=== PATIENT | female | born 1950 | race Caucasian/White ===

== ENCOUNTER 2023-08-23 13:48 | Emergency (ER) | payer MEDICAID, OTHER, SELFPAY ==
--- NOTE | ~2023-08-23 | XR_ITS ---
EXAMINATION: XR CHEST CLINICAL INFORMATION: Pain COMPARISON: None available. TECHNIQUE: 2 views of the chest were obtained. FINDINGS: The cardiac silhouette is enlarged. The thoracic aorta is slightly dilated or ectatic. There may be bilateral hilar and subcarinal mediastinal lymphadenopathy. There are innumerable bilateral pulmonary nodules. Infectious, inflammatory and neoplastic processes should be considered. There are small bilateral pleural effusions. No acute bone abnormality is seen. There are surgical clips in the left axilla. XR/XR chest 2V IMPRESSION: Innumerable bilateral pulmonary nodules and small bilateral pleural effusions. Infectious, inflammatory and neoplastic processes should be considered. Follow-up chest CT scan may be helpful.
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
[2023-08-23 14:17] VITALS: BP 106/65; PULSE 96; RESP 17; TEMP 36.3; O2SAT 90; BMI 39.7
--- NOTE | 2023-08-23 14:18 | ECG_ITS ---
Test Reason : dyspnea Blood Pressure : / mmHG Vent. Rate : 100 BPM Atrial Rate : 100 BPM P-R Int : 160 ms QRS Dur : 100 ms QT Int : 348 ms P-R-T Axes : 049 000 043 degrees QTc Int : 448 ms Normal sinus rhythm Intra-ventricular conduction delay Possible Anterior infarct , age undetermined Abnormal ECG No previous ECGs available Referred By: Po Pak Electronically Signed By:MARQUISE MCCALLUM MD
--- NOTE | 2023-08-23 15:00 | PC.NURSE ---
pct in room to attempt straight stick to obtain blood work, patient refusing stating she will only allow blood to be drawn via IV.
--- NOTE | 2023-08-23 18:27 | PC.NURSE ---
patient refusing all lab work. requesting an oxygen tank and wheelchair upon discharge. provider reaching out to curtain supervisor in regards to oxygen tank to take home. educated on the fact they will not be able to leave with a wheelchair. provided with sandwiches and drinks. resting quietly in room conversing with family that is at the bedside.
--- NOTE | 2023-08-23 20:00 | PC.NURSE ---
Pt arrived to ED overflow from Main ED at 19:32. Pt arrived in wheelchair accompanied by her granddaughter. Pt hypertensive 183/88 HR 99 on right arm cuff pressure. Size appropriate cuff obtained for manual to confirm, maual 182/90. Pt asymptomatic at this time though is asking about receiving her home medications. Pt in no apparent distress at this time. No med rec appears to have been completed by pharmacy at this time. Pharmacy contacted to request med rec completion as pt is concerned for her BP and cancer medications. Advised pharmacy to collect meds and complete. Covering Dr. Jean Santiago notified, awaiting med rec and following med orders.
[2023-08-23 20:05] VITALS: BP 182/90; PULSE 99; RESP 16; TEMP 36.3; O2SAT 93
--- NOTE | 2023-08-23 20:07 | MHC.EDTECH ---
Patient just came to overflow from the main ed ,Pt vitals taken VANITA Hoffman aware of pt high bp ,Pt refused to change into hospital gown ,VANITA Hoffman aware ,this pct give pt turkey sandwich ,pudding and carlitos soila for snack ,Pt was given a bedside commode ,pt said she will give urine sample ,but no blood work ,RN also aware ,pt grand daughter wants to stay with Pt Clinacal Coordinator Eda said was ok for pt grand daughter to stay ,VANITA Hoffman aware .
--- NOTE | 2023-08-23 20:38 | MHC.EDTECH ---
Patient was a stand by asst to bedside commode ,voided 350 ml ,urine sample collected and sent to lab .
[2023-08-23 20:51] LABS: Appearance Urine Cloudy; Color Urine Dark Yellow; Glucose Urine UA Negative (Negative); Leukocyte Esterase Urine Moderate (2+) (Negative); Nitrite Urine Negative (Negative); PH 5.5 (5.0-9.0); Specific Gravity - Urine >= 1.030 (1.005-1.025); UMIC TRIGGER UACC YES; Urine Blood Trace (Negative); Urine Ketones Negative (Negative); Urine Protein 30 (1+) mg/dL (Neg-Trace)
--- NOTE | 2023-08-23 20:57 | PHA.MEDREC ---
Pharmacy Consult ? Medication Reconciliation Pharmacy has completed the medication reconciliation. Patient had bag of meds that included most, but not all meds. Levothyroxine was missing. Called daughter to verify, but she was unsure. Emily is positive she is on levothyroxine and even points to thyroid. All other meds entered, using trinket to translate from nigerian language. Send exemestane, chlorthalidone, and budesonide down with our labels as patient own meds. Will be placed in bin. Pt expected to leave in AM. Will remind nurse to take those meds at completion of this note. Efrain
[2023-08-23 21:00] LABS: Bacteria Urine 4+ (None Seen); UACC Culture Trigger YES; WBC Urine 21-50 /HPF (0-5)
[2023-08-23] MEDS: Metoprolol Succinate ER 50 MG TAB.ER.24H PO (21:14)
[2023-08-24 04:48] VITALS: BP 178/90; PULSE 79; RESP 18; TEMP 36.3; O2SAT 93
--- NOTE | 2023-08-24 05:40 | PC.NURSE ---
Pt hypertensive on vitals this morning 178/90 HR 79 despite receiving home metoprolol ER in evening. Pt asymptomatic; expressing upset that staff is entering her room for care overnight. Pt educated that care for her safety and well-being overnight and care has been clustered for optimal rest while in the hospital. Covering Dr. Amanda Sandhu notified of BP. Awaiting further orders. Pt scheduled levothyroxine not available in overflow pyxis; med requested from main ed. awaiting at this time. Pt observed without distress or acute complaints.
[2023-08-24] MEDS: Levothyroxine Sodium 150 MCG TABLET PO (06:40)
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
[2023-08-24 10:48] VITALS: PULSE 89; RESP 20; O2SAT 91
[2023-08-24 11:38] VITALS: PULSE 88; PULSE 89; PULSE 94; PULSE 96; O2SAT 86; O2SAT 87; O2SAT 90; O2SAT 91
--- NOTE | 2023-08-24 11:43 | PC.RT ---
pt qualifies for oxygen. 2 liters at rest and 4 liters on exertion. Family concerned as they are homeless and pt cannot walk up 4 flights of stairs. Pt applied for [employer] but not approved yet. [employer] rep. states that pt can go home with oxygen even without [employer] approval. However, they would have to pay the fee of $125.00/month per [employer]. The problem is that the family does not have a credit card and [employer] is requesting this for payment. The other issue is that they would have to look for a motel/hotel room as its a first floor transition for patient to walk. At this time we don't have a valid address for the [employer] to deliver the oxygen equipment nor do they have transportation. I will discuss this case with Huma from Case Management and she will discuss this with Inspector Wreath Radha Leal.
--- NOTE | 2023-08-24 14:31 | PC.NURSE ---
called pharmacy for med not available in pyxis
[2023-08-24] MEDS: Throat Lozenge, Medicated LOZENGE 1 LOZENGE MUCOUS MEM (16:06)
--- NOTE | 2023-08-24 16:15 | PC.NURSE ---
Care assumed [id number]: Patient alert and oriented x 4. Remained calm and cooperative with care. Adequate PO intake for breakfast and lunch. Granddaughter at the bedside. CM and RT following to assist with safe dispo. Care handed off to Kamryn WALDRON.
[2023-08-24] MEDS: Metoprolol Succinate ER 50 MG TAB.ER.24H PO (16:22)
[2023-08-24 16:36] VITALS: BP 175/98; PULSE 88; RESP 19; TEMP 36.4; O2SAT 92
--- NOTE | 2023-08-24 18:32 | MHC.EDTECH ---
pt requested t/w increase oxygen on nc. per phu castanon, oxygen increased to 4 L.
[2023-08-24] MEDS: predniSONE 20 MG TABLET PO (19:00)
[2023-08-24 21:55] VITALS: BP 151/79; PULSE 88; RESP 20; TEMP 36.1; O2SAT 95
[2023-08-25] MEDS: Levothyroxine Sodium 150 MCG TABLET PO (05:54)
--- NOTE | 2023-08-25 05:58 | PC.NURSE ---
Assumed care of pt from [id number], and again at 0300. PT alert and oriented. Granddaughter at bedside. Vital signs- 151/79 bp, o2- 95% on 4L NC, temp- 97 and hr-88. PT states she has some anxiety about being in the hospital but believes she is being discharged tomorrow with oxygen. PT states she completed her [employer] application today and was told she would be able to go home in the morning. PT granddaughter requesting a shower and noted she was going to stay overnight. Several of bags in the corner of the room. This RN contacted house sup as there was no information about granddaughter being able to stay overnight. Ok'd from house sup and charge for PT to stay but noted there was not anywhere for lois to shower in the hospital as she is not a patient PT medicated as per DEC. Day shift RN noted that PT own meds were being kept in PT room as they were checked by pharmacy, and are in her med list but they are from [place]. As to not have medications lost Pt is keeping in her possession.
[2023-08-25 06:13] VITALS: BP 154/88; PULSE 80; RESP 18; TEMP 36.2; O2SAT 94
--- NOTE | 2023-08-25 10:01 | MHC.EDTECH ---
Patient refused to have labs drawn.
[2023-08-25 10:22] LABS: Appearance Urine Cloudy; Color Urine Dark Yellow; Glucose Urine UA Negative (Negative); Leukocyte Esterase Urine Moderate (2+) (Negative); Nitrite Urine Positive (Negative); Specific Gravity - Urine 1.025 (1.005-1.025); UMIC TRIGGER UACC YES; Urine Blood Trace (Negative); Urine Ketones Negative (Negative); Urine Protein Trace mg/dL (Neg-Trace)
[2023-08-25 10:25] LABS: Bacteria Urine 4+ (None Seen); UACC Culture Trigger YES; WBC Urine 21-50 /HPF (0-5)
--- NOTE | 2023-08-25 10:29 | PC.NURSE ---
pt refusing blood work, IV and IV ABX. PA in ED notified and intends to discuss with patient
--- NOTE | 2023-08-25 12:30 | PC.NURSE ---
pt resting comfortably. On 3L 02 for comfort. RT and PA aware. Grandaughter at bedside. pt refused blood work and IV and abx.
[2023-08-25] MEDS: cefuroxime axetiL 250 MG TABLET PO (13:22)
--- NOTE | 2023-08-25 14:22 | MHC.CM.ED ---
Patient remains in ER overflow. Per Jordan RT, oxygen has been arranged. O2 tanks given to patient. Daughter will transport patient home. Rachele TEE and Nini WALDRON aware. Continue to monitor for d/c needs.
--- NOTE | 2023-08-25 16:08 | HE.PHANOTE ---
Addendum entered by Emani Chung RPh 08/25/23 21:35: Med picked picked up by Rochelle 08/25 @ 6926 Original Note: Patient own medication chlorthialdone was left on discharge. I spoke with patient's daugther Rochelle 08/25 @ 1600, to inform them about the medication. Rochelle will continuous pickling line pickler helper medication tonight or tomorrow. While searching if any other medication were left behind I found an empty box of oxazepam 10 mg tablet there were never brought to pharmacy for verification.
== END 2023-08-25 14:53 | disposition left against medical advice (07) ==
PROVIDERS: Physician Assistant; Emergency Provider Internal Medicine
DX: R06.02 Shortness of breath (principal); R09.02 Hypoxemia; N39.0 Urinary tract infection, site not specified; R07.89 Other chest pain; Z99.81 Dependence on supplemental oxygen; Z79.899 Other long term (current) drug therapy
CPT/HCPCS: 71046; 81001; 87086; 87088; 87186; 93005; 99285

== ENCOUNTER 2023-08-31 15:58 | Inpatient (IN) | payer MEDICAID, OTHER, SELFPAY ==
[2023-08-31] VITALS (14 sets, daily range): BP systolic 106–136; BP diastolic 53–74; PULSE 103–156; RESP 2–24; TEMP 36.4–36.7; O2SAT 88–93; BMI 42.4
--- NOTE | ~2023-08-31 | CT_ITS ---
EXAMINATION: CT ANGIOGRAM OF THE CHEST WITH AND WITHOUT CONTRAST (CT PULMONARY ANGIOGRAM FOR PE) CLINICAL INFORMATION: Reason for Exam ? PE COMPARISON: Chest x-ray from earlier this month TECHNIQUE: Prior to contrast administration, noncontrast localization images were obtained. Subsequently, multidetector volumetric imaging was performed from the thoracic inlet to below the diaphragms following the administration of 85 mL Omnipaque 350 intravenous contrast. No contrast reaction reported Sagittal, coronal, and MIP oblique sagittal reformatted images were obtained on the CT workstation, uploaded to PACS, and reviewed. This CT examination was performed using dose optimization techniques as appropriate, variously including the following: *Automated exposure control *Adjustment of mA and/or kV according to patient size (this includes techniques or standardized protocols for targeted exams where dose is matched to indication/reason for exam; i.e. extremities or head) *Use of iterative reconstruction technique Total exam dose-length product 546 mGy-cm FINDINGS: QUALITY OF STUDY/CONTRAST BOLUS: Satisfactory. PULMONARY ARTERIES: No pulmonary emboli. Pulmonary arteries are prominent, main pulmonary artery measuring 3. THORACIC AORTA: No aneurysm. LUNG: Innumerable bilateral pulmonary nodules probably represents metastatic disease. Largest pulmonary nodule measures 4 centimeters in the right lower lobe axial image 30. PLEURA: Moderate to large loculated bilateral pleural effusions MEDIASTINUM: Normal heart size. No pericardial effusion. Pericardial thickening. Abnormal soft tissue masses in the pericardial and epicardial fat. Enlarged mediastinal and bilateral hilar lymph nodes. Largest lymph node is a subcarinal node measuring 2.5 cm in short axis. No evidence of septal bowing or right heart strain. Left thyroid nodule. Right thyroid lobe not seen. CORONARY ARTERY CALCIFICATION: None visualized on this study. CHEST WALL/AXILLA: Surgical clips in the left axilla. Question soft tissue mass or enlarged lymph node in the left axilla axial image 21 series 7. Right breast may have been removed. Small amount of air in the subcutaneous fat of the right chest wall. OSSEOUS STRUCTURES: No acute or suspicious osseous abnormality. UPPER ABDOMEN: Enlarged upper abdominal lymph nodes. Diverticulosis of the colon. No reflux of contrast into the hepatic veins to suggest elevated right heart pressures. CT/CT angio chest PE protocol IMPRESSION: No evidence of pulmonary embolism. Innumerable bilateral pulmonary nodules, mediastinal and bilateral hilar lymphadenopathy and loculated bilateral pleural effusions. Findings are suggestive of metastatic disease. Enlarged pulmonary arteries questionable pulmonary artery hypertension. VTE: negative
--- NOTE | ~2023-08-31 | CT_ITS ---
EXAMINATION: CT ABDOMEN AND PELVIS WITH CONTRAST CLINICAL INFORMATION: Left flank pain COMPARISON: Chest CT from earlier the same day TECHNIQUE: Multidetector volumetric images were obtained from the superior aspect of the liver through the pubic symphysis following administration 85 mL of Omnipaque 350 intravenous contrast. Sagittal and coronal reformatted images were obtained on the technologist's workstation. Oral contrast: Yes This CT examination was performed using dose optimization techniques as appropriate, variously including the following: *Automated exposure control *Adjustment of mA and/or kV according to patient size (this includes techniques or standardized protocols for targeted exams where dose is matched to indication/reason for exam; i.e. extremities or head) *Use of iterative reconstruction technique DLP: 919 mGy-cm FINDINGS: LUNG BASES: See chest CT report from earlier the same day LIVER, GALLBLADDER, AND BILIARY TREE: Low-attenuation liver lesions suggestive of metastatic disease. Largest lesion or more lesions involve the anterior segment of right lobe and medial segment of the left lobe and measures 8.5 x 10.5 cm. Gallstones versus one very large gallstone in the gallbladder measuring 4 x 2 cm. I attenuation in the gallbladder questionable gallbladder mass versus an abnormal wall thickening. Follow-up ultrasound recommended. No biliary duct dilatation. PANCREAS: Unremarkable. SPLEEN: Low-attenuation or cystic lesion in the spleen largest measuring 1.7 cm. ADRENAL GLANDS: Unremarkable. KIDNEYS AND URETERS: The kidneys are normal in size, shape, and attenuation. No hydronephrosis, hydroureter, or calculi seen. Bilateral renal cysts. No imaging follow-up recommended. No perinephric stranding. BLADDER: Unremarkable. GASTROINTESTINAL TRACT: Diverticulosis of the colon. No evidence of diverticulitis. The small and large bowel are otherwise unremarkable. The appendix is unremarkable. ABDOMINAL WALL: No significant hernia is appreciated. LYMPH NODES: There are enlarged upper abdominal lymph nodes. Largest lymph nodes are in the gastrohepatic space measuring 1.3 cm in short axis and left para-aortic retroperitoneum measuring 1 cm in short axis axial image 26. There are smaller lymph nodes adjacent to the head of the pancreas.. VASCULAR: Right femoral line in the right external iliac vein. Normal caliber abdominal aorta. PELVIC VISCERA: 5.7 x 6.4 cm left ovarian cyst. This appears slightly complex and multiloculated with small solid component. 7.3 x 8.6 cm complex are sharply solid partially cystic and multiloculated right ovarian cyst. The uterus is unremarkable. OSSEOUS STRUCTURES: Mild compression fracture of the superior endplate of the L4 vertebral body. Sclerotic lesions in the 4 and L5 vertebral bodies. Question small sclerotic lesion in the L2 vertebral body. 1 cm sclerotic lesion in the left iliac bone.Degenerative changes of the spine and hip joints. CT/CT abdomen pelvis w IV con IMPRESSION: Probable metastatic disease to the liver. Question metastatic disease to the spleen. Gallstones versus one very large 4 x 2 cm gallstone in the gallbladder. Question solid material in the gallbladder/gallbladder mass. Follow-up gallbladder ultrasound recommended. Enlarged upper abdominal lymph nodes. Bilateral cystic ovarian masses, right greater than left. Probable sclerotic metastatic bone disease. Mild compression fracture of the left side of the L4 body, question pathologic fracture. Fleischner guidelines were followed.
--- NOTE | ~2023-08-31 | US_ITS ---
EXAMINATION: US ABDOMEN LIMITED CLINICAL INFORMATION: Pain.. COMPARISON: Correlation made with CT performed the same day. TECHNIQUE: Real-time imaging of the right upper quadrant abdominal viscera. FINDINGS: The study is limited as the patient was examined sitting erect and patient body habitus. PANCREAS: Pancreas is obscured by bowel gas. LIVER: Liver is of increased parenchymal echotexture. Multiple low-density liver masses are noted measuring up to 8.9 0.7 x 7.4 cm. There is no intrahepatic biliary duct dilatation seen. GALLBLADDER: Evaluation of the gallbladder is limited. Large gallstones are noted. COMMON BILE DUCT: Not well evaluated. There is no evidence for biliary dilatation. RIGHT KIDNEY: Normal. No hydronephrosis. No renal calculi or focal parenchymal lesions. The kidney measures 8.5 cm in maximum dimension. FREE FLUID: None. US/US abdomen limited IMPRESSION: Limited examination. Multiple liver masses most consistent with metastatic disease. Multiple gallstones are noted without definitive evidence for cholecystitis. Evaluation was limited. The common bile duct is not well seen. No evidence of biliary dilatation.
--- NOTE | ~2023-08-31 | XR_ITS ---
EXAMINATION: XR CHEST CLINICAL INFORMATION: Question CHF COMPARISON: Previous chest x-ray from 08/23/[address] from earlier the same day TECHNIQUE: Frontal view of the chest was obtained. FINDINGS: The cardiac and mediastinal contours are stable. There are bilateral pulmonary nodules. The lungs are otherwise clear there are small bilateral pleural effusions, left greater than right. From 08/23/2023 exam. There are surgical clips in the left axilla. There are degenerative changes of the spine. XR/XR chest 1V IMPRESSION: No evidence of CHF. Innumerable bilateral pulmonary nodules. Bilateral pleural effusions, left greater than right, slightly increased from 08/23/2023 exam.
--- NOTE | 2023-08-31 16:00 | ED.GENADULT ---
HPI - General Adult General Stated complaint: Back pain Related Data Home Medications Medication Instructions Recorded Confirmed acetaminophen 500 mg tablet 1,000 mg PO Q6H PRN Pain 08/23/23 08/23/23 albuterol sulfate 90 mcg/actuation 1 puff inhalation 6XD PRN Wheezing 08/23/23 08/23/23 aerosol inhaler budesonide 200 mcg/actuation 200 mcg inhalation BID 08/23/23 08/23/23 breath activated powder inhaler chlorthalidone 25 mg tablet 12.5 mg PO BEDTIME 08/23/23 08/23/23 exemestane 25 mg tablet 25 mg PO DAILY 08/23/23 08/23/23 ibuprofen 600 mg tablet 600 mg PO TID PRN Pain 08/23/23 08/23/23 levothyroxine 150 mcg tablet 150 mcg PO DAILY 08/23/23 08/23/23 metoprolol succinate 50 mg 50 mg PO BEDTIME 08/23/23 08/23/23 tablet,extended release 24 hr prednisone 20 mg tablet 20 mg PO DAILY 08/23/23 08/23/23 Previous Rx's Medication Instructions Recorded cefuroxime axetil 250 mg tablet 250 mg PO BID 7 days #14 tabs 08/25/23 levofloxacin 500 mg tablet 500 mg PO DAILY 5 days #5 tabs 08/27/23 Allergies Allergy/AdvReac Type Severity Reaction Status Date / Time No Known Allergies Allergy Verified 08/23/23 14:18 Course Course Course Narrative: This is an RME: Additional HPI, ROS, PE not included below will be deferred to primary provider. 73 yo f from the [place] who was recently admitted for UTI and currently bring treated with Ceftin presenting with left flank pain and abdominal pain. She is on 3L home oxygen and endorses baseline sob. Plan - UA, labs Discharge Plan Discharge Prescriptions: No Action metoprolol succinate 50 mg Tablet Extended Release 24 Hr 50 mg PO BEDTIME prednisone 20 mg Tablet 20 mg PO DAILY chlorthalidone 25 mg Tablet 12.5 mg PO BEDTIME acetaminophen 500 mg Tablet 1,000 mg PO Q6H PRN (Reason: Pain) exemestane 25 mg Tablet 25 mg PO DAILY Rx Instructions: must administer after a meal levothyroxine 150 mcg Tablet 150 mcg PO DAILY budesonide 200 mcg/actuation Aerosol Powdr Breath Activated 200 mcg INHALATION BID ibuprofen 600 mg Tablet 600 mg PO TID PRN (Reason: Pain) albuterol sulfate 90 mcg/actuation Hfa Aerosol Inhaler 1 puff INHALATION 6XD PRN (Reason: Wheezing) cefuroxime axetil 250 mg tablet 250 mg PO BID 7 Days Qty: 14 0RF levofloxacin 500 mg tablet 500 mg PO DAILY 5 Days Qty: 5 0RF
--- NOTE | 2023-08-31 18:05 | ECG_ITS ---
Test Reason : short of breathe Blood Pressure : / mmHG Vent. Rate : 111 BPM Atrial Rate : 111 BPM P-R Int : 132 ms QRS Dur : 090 ms QT Int : 318 ms P-R-T Axes : 054 000 061 degrees QTc Int : 432 ms Sinus tachycardia with Fusion complexes Left axis deviation Possible Anterior infarct (cited on or before 23-AUG-2023) Abnormal ECG When compared with ECG of 23-AUG-2023 15:09, Fusion complexes are now Present Referred By: Lilo Shay Electronically Signed By:MARQUISE MCCALLUM MD
--- NOTE | 2023-08-31 18:07 | ED.GENADULT ---
HPI - General Adult General Chief complaint: Back Pain/Injury Stated complaint: Back pain Time Seen by Provider: 08/31/23 17:09 History of Present Illness HPI narrative: Patient is a 73-year-old female presents today with having left-sided back pain also having left flank pain. Denies any pain on urination. Has a history of metastatic breast cancer going to the lungs. Baseline is on oxygen. Patient does not have a primary care physician here in [place]. Normally lives in the [facility]. [place]oved [place] the [place] ago. Has a history of diabetes. History of hypothyroid. Currently on medication for breast cancer. No coughing or congestion or upper respiratory symptoms. No diaphoresis. Patient is from home. No leg swelling. Patient was seen recently in the emergency department. Diagnosed with a possible UTI. Unfortunately the culture came back resistant to cephalosporins. A script for Levaquin was called in but patient was unable to pick it up. Related Data Home Medications Medication Instructions Recorded Confirmed acetaminophen 500 mg tablet 1,000 mg PO Q6H PRN Pain 08/23/23 08/23/23 albuterol sulfate 90 mcg/actuation 1 puff inhalation 6XD PRN Wheezing 08/23/23 08/23/23 aerosol inhaler budesonide 200 mcg/actuation 200 mcg inhalation BID 08/23/23 08/23/23 breath activated powder inhaler chlorthalidone 25 mg tablet 12.5 mg PO BEDTIME 08/23/23 08/23/23 exemestane 25 mg tablet 25 mg PO DAILY 08/23/23 08/23/23 ibuprofen 600 mg tablet 600 mg PO TID PRN Pain 08/23/23 08/23/23 levothyroxine 150 mcg tablet 150 mcg PO DAILY 08/23/23 08/23/23 metoprolol succinate 50 mg 50 mg PO BEDTIME 08/23/23 08/23/23 tablet,extended release 24 hr prednisone 20 mg tablet 20 mg PO DAILY 08/23/23 08/23/23 Previous Rx's Medication Instructions Recorded cefuroxime axetil 250 mg tablet 250 mg PO BID 7 days #14 tabs 08/25/23 levofloxacin 500 mg tablet 500 mg PO DAILY 5 days #5 tabs 08/27/23 Allergies Allergy/AdvReac Type Severity Reaction Status Date / Time No Known Allergies Allergy Verified 08/23/23 14:18 Review of Systems Review of Systems: positive back pain Yes all other systems are reviewed and are negative [facility] Past Medical History Attestation statement: The following information was validated with the patient. Social History Social History Advance Directives: No Advance Directives Information Provided: No Physical Exam ED Vital Signs: Vital Signs - 24 hr 08/31/23 15:59 08/31/23 16:16 08/31/23 18:00 Temperature 97.6 F Pulse Rate 145 H 110 H 111 H Respiratory Rate 24 H 22 H 17 Blood Pressure 107/53 L 124/69 114/64 Pulse Oximetry 91 L 92 90 L Oxygen Delivery Method Nasal Cannula Nasal Cannula Nasal Cannula Oxygen Flow Rate 5 5 08/31/23 18:21 08/31/23 20:05 08/31/23 20:28 Temperature 98.1 F Pulse Rate 116 H 150 H Respiratory Rate 16 22 H 20 Blood Pressure 121/72 127/74 Pulse Oximetry 88 L 92 Oxygen Delivery Method Nasal Cannula Oxymask Oxygen Flow Rate 6 10 08/31/23 20:36 08/31/23 20:41 08/31/23 20:42 Temperature 98.1 F Pulse Rate 118 H 156 H 148 H Respiratory Rate 2 L 20 Blood Pressure 134/60 133/64 Pulse Oximetry 93 93 Oxygen Delivery Method Oxymask Oxymask Oxygen Flow Rate 10 10 08/31/23 20:49 08/31/23 20:59 08/31/23 21:10 Temperature Pulse Rate 132 H 107 H 105 H Respiratory Rate 20 20 22 H Blood Pressure 133/73 106/55 L 128/60 Pulse Oximetry 93 93 92 Oxygen Delivery Method Oxymask Oxymask Oxymask Oxygen Flow Rate 10 10 10 08/31/23 21:30 Temperature Pulse Rate 105 H Respiratory Rate 20 Blood Pressure 136/63 Pulse Oximetry 92 Oxygen Delivery Method Nasal Cannula Oxygen Flow Rate 10 BMI result Body Mass Index 42.4 Appearance: Alert. Oriented X3. No acute distress. Eyes: Pupils equal, round and reactive to light. ENT: Pharynx normal. Neck: Normal inspection. Neck supple. No lymph nodes noted. No crepitus CVS: Normal heart rate and rhythm. Pulses normal. Normal S1 and S2 Respiratory: No respiratory distress. Breath sounds normal. No Wheezing. No rales Abdomen: Soft and nontender. No rigidity. No distention. good BS x4 Skin: Skin warm and dry. Normal skin color. Normal skin turgor. Extremities: No lower extremity edema. Neurovascular intact to all extremities. No Lacerations. No Rash Neuro: Oriented X 3. No motor deficit. No sensory deficit. Moving all extermities. No slurred speech Medications Administered Discontinued Medications Generic Name Dose Route Start Last Admin Trade Name Freq PRN Reason Stop Dose Admin Adenosine 6 mg 08/31/23 20:41 08/31/23 20:46 Adenosine 6 Mg/2 Ml Vial IVPUSH 08/31/23 20:42 6 mg ONCE ONE Administration Hydromorphone HCl 0.5 mg 08/31/23 18:04 08/31/23 18:21 Hydromorphone Hcl 0.5 Mg/0.5 Ml Syringe IVPUSH 08/31/23 18:05 0.5 mg ONCE ONE Administration Protocol Levofloxacin 500 mg in 100 mls @ 100 mls/hr 08/31/23 18:50 08/31/23 21:22 Levaquin IV 08/31/23 19:49 Infused ONCE ONE Infusion Sodium Chloride 3,360 mls @ 3,360 mls/hr 08/31/23 19:01 08/31/23 21:29 Ns 30 ml/kg infuse over 1 hr (3360 ml) 08/31/23 20:00 Infused IV Infusion .Q1H STA Iohexol 85 ml 08/31/23 19:49 08/31/23 19:51 Iohexol 350 Mg/Ml 100 Ml Infus..Btl IV 08/31/23 19:50 85 ml ONCE ONE Administration Metoprolol Tartrate 5 mg 08/31/23 20:50 08/31/23 20:53 Metoprolol Tartrate 5 Mg/5 Ml Vial IVPUSH 08/31/23 20:51 5 mg ONCE ONE Administration Ondansetron HCl 4 mg 08/31/23 18:04 08/31/23 18:21 Ondansetron Hcl 4 Mg/2 Ml Vial IVPUSH 08/31/23 18:05 4 mg ONCE ONE Administration Procedures Central Line Placement Right Femoral: Time Out Performed: Yes Patient Placed on Monitor/Pulse Ox: Yes MD Prep: mask, gown and gloves Central Line Prep: Chlorhexidine scrub Local Anesthetic: lidocaine 1% Amount of anesthesia used (mL): 3 Ultrasound Used for Placement: Yes Central Line Lumen Inserted: triple Post Procedure: sutured in place, good blood return, all ports aspirated, flushed, capped and sterile dressing applied Patient Tolerated Procedure: well Complications: none Medical Decision Making Medical Decision Making [facility] Narrative: patient had previous history of breast cancer has a history from the [place] with metastatic breast cancer. Presented today with having increasing shortness of breath also having pain to the left back area. Patient white count came back at 18 however patient is also on steroids. Patient had a significantly elevated lactate. Question etiology in the setting of having previous urinary tract infection that was under treated cannot exclude the possibility of UTI. A central line was placed as patient does not have any access. A cultures were obtained. Levaquin was started as patient's previous culture was reviewed it was resistant to Rocephin. Initially 30 cc/kilos IV fluid was ordered. Unfortunately after L of IV fluid patient started developing crackles. increased oxygen demand. Patient's heart rate went up to the 150s. An EKG was obtained when the heart rate was 150 it looks like a supraventricular tachycardia rate of 150. A dose of adenosine was given it seems like an SVT however interesting thing is patient's heart rate went back up to 150s. She does have a history of being on metoprolol at a dose of 5 mg metoprolol was given. Heart rate came down to 100 or so. It looks sinus on the EKG. A CTA of the chest was done. The CTA of the chest did not show any acute evidence of PE. There is no focal infiltrate. There is significant lymph nodes consistent with malignancy with metastatic disease. Will admit patient for further evaluation. Second lactate is pending. Differential Diagnosis Differential Diagnoses: The differential diagnosis associated with the presentation includes Pneumonia, rib fracture, metastatic disease, PE, congestive heart failure, SVT, atrial flutter Admission/Observation Consideration of admission/observation: Escalation of care including admission/observation considered patient will require admission for further evaluation Consult Healthcare Provider Management of the patient was discussed with: Hospitalist Lab Data [facility] Lab Attestation statement: I reviewed the patient's lab results. 08/31/23 18:38 08/31/23 18:38 Labs: Lab Results 08/31/23 08/31/23 08/31/23 Range/Units 18:38 20:03 21:28 WBC 18.0 H (4.8-10.8) X10*3/uL RBC 3.69 L (4.20-5.50) X10*6/uL Hgb 10.8 L (12.0-16.0) g/dl Hct 33.5 L (37.0-47.0) % MCV 90.8 (80.0-98.0) fL MCH 29.3 (27.0-33.0) pg MCHC 32.2 (31.0-35.0) g/dl RDW 14.8 (11.0-16.0) % Plt Count 417 H (160-400) X10*3/uL MPV 9.5 (9.4-12.3) fL Immature Gran % (Auto) 2.4 H (0.0-0.4) % Neut % (Auto) 89.8 H (45-73) % Lymph % (Auto) 2.9 L (20-40) % [place] % (Auto) 4.7 (2-11) % Eos % (Auto) 0.0 (0-4) % Baso % (Auto) 0.2 (0-2) % Lymph # (Auto) 0.5 L (1.2-4.9) X10*3/uL [place] # (Auto) 0.8 (0.1-1.2) X10*3/uL Eos # (Auto) 0.0 (0.0-0.4) X10*3/uL Baso # (Auto) 0.0 (0.0-0.2) X10*3/uL Abs Immat Gran (auto) 0.43 H (0.00-0.03) X10*3/uL Absolute Neuts (auto) 16.2 H (2.0-8.3) x10*3/uL Absolute Nucleated RBC 0.000 (0.0-0.012) X10*3/uL Nucleated RBC % (auto) 0.0 (0.0-0.2) /100WBC Sodium 136 (135-145) mmol/L Potassium 4.6 (3.3-5.1) mmol/L Chloride 92 L (96-108) mmol/L Carbon Dioxide 31 H (22-29) mmol/L Anion Gap 18 (12-20) BUN 59 H (9-16) mg/dL Creatinine 1.00 (0.5-1.4) mg/dL Estim Creat Clear Calc 63.2 Estimated GFR 55 Random Glucose 175 H (60-115) mg/dL Lactic Acid 4.9 H* (0.5-2.0) mmol/L Lactic Acid F/U @ 2Hr 3.0 H* (0.5-2.0) mmol/L Calcium 10.5 H (8.4-10.2) mg/dL Magnesium 1.8 (1.6-2.6) mg/dL Total Bilirubin 0.4 (0.0-1.0) mg/dL AST 83 H (5-31) U/L ALT 54 H (0-31) U/L Alkaline Phosphatase 135 H (39-117) U/L Troponin I High Sens 53.7 H* (<3.5-17.0) ng/L Total Protein 6.0 L (6.5-8.0) g/dL Albumin 3.2 L (3.5-5.0) g/dL Lipase 28 (8-78) U/L COVID-19 (SUZIE) Negative (Negative) COVID-19 Clin Com See Note Independent Interpretation I performed an independent interpretation of an: EKG ( my interpretation of the 2nd EKG showed a sinus rhythm heart rate is 120 RI QRS QTC within normal limits is no acute ST segment elevation. This EKG was done at 20:30.) and CT Scan ( CTA chest showed no large infiltrate no gross large blood clot noted) Interpretation: a 3rd EKG done at 2035 showed a supraventricular tachycardia QRS is normal QTC is normal this diffuse T-wave flattening noted. Patient was given a dose of adenosine at this point. The rhythm strip showed supraventricular tachycardia slowed down a bit and then went back up into the rate of about 150 no atrial flutter noted. Radiology Impression Discussion of test interpretation with radiology: I have reviewed the radiologist's reading. External Record Review patient's previous ED visit was reviewed Chronic Conditions Patient?s care impacted by: Cancer breast cancer, with metastatic disease Critical Care Time Critical Care Time Critical Care Time: Yes Total Critical Care Time: 40 Attestation: I have personally provided 40 minutes of critical care time exclusive of time spent on separately billable procedures. Time includes review of lab data, radiology results, discussion with consultants, and monitoring for potential decompensation. Interventions were performed as documented above Discharge Plan Discharge Clinical Impression: Urinary tract infection, Congestive cardiac failure Patient Disposition: Admitted As Inpatient Prescriptions: No Action metoprolol succinate 50 mg Tablet Extended Release 24 Hr 50 mg PO BEDTIME prednisone 20 mg Tablet 20 mg PO DAILY chlorthalidone 25 mg Tablet 12.5 mg PO BEDTIME acetaminophen 500 mg Tablet 1,000 mg PO Q6H PRN (Reason: Pain) exemestane 25 mg Tablet 25 mg PO DAILY Rx Instructions: must administer after a meal levothyroxine 150 mcg Tablet 150 mcg PO DAILY budesonide 200 mcg/actuation Aerosol Powdr Breath Activated 200 mcg INHALATION BID ibuprofen 600 mg Tablet 600 mg PO TID PRN (Reason: Pain) albuterol sulfate 90 mcg/actuation Hfa Aerosol Inhaler 1 puff INHALATION 6XD PRN (Reason: Wheezing) cefuroxime axetil 250 mg tablet 250 mg PO BID 7 Days Qty: 14 0RF levofloxacin 500 mg tablet 500 mg PO DAILY 5 Days Qty: 5 0RF
[2023-08-31] MEDS: ondansetron HCL 4 MG/2 ML VIAL IVPUSH ×2 (18:21→23:21)
[2023-08-31] MEDS: HYDROmorphone HCl 0.5 MG/0.5 ML SYRINGE IVPUSH (18:21)
[2023-08-31 18:48] LABS: MANUAL DIFF FLAG NO
[2023-08-31 18:49] LABS: Basophils Percent Auto 0.2 % (0-2); Hematocrit 33.5 % (37.0-47.0); Hemoglobin 10.8 g/dl (12.0-16.0); Imm Gran Abs Auto 0.43 X10*3/uL (0.00-0.03); Imm Gran Pct Auto 2.4 % (0.0-0.4); Lymphocytes Absolute Auto 0.5 X10*3/uL (1.2-4.9); Lymphocytes Percent Auto 2.9 % (20-40); Mean Corpuscular HGB Conc 32.2 g/dl (31.0-35.0); Mean Corpuscular Hemoglobin 29.3 pg (27.0-33.0); Mean Corpuscular Volume 90.8 fL (80.0-98.0); Mean Platelet Volume 9.5 fL (9.4-12.3); Monocytes Absolute Auto 0.8 X10*3/uL (0.1-1.2); Monocytes Percent Auto 4.7 % (2-11); Neutrophils Absolute Auto 16.2 x10*3/uL (2.0-8.3); Neutrophils Percent Auto 89.8 % (45-73); Platelet Count 417 X10*3/uL (160-400); Red Blood Count 3.69 X10*6/uL (4.20-5.50); Red Cell Distribution Width 14.8 % (11.0-16.0)
--- NOTE | 2023-08-31 18:50 | PC.NURSE ---
Assumed care of pt. Pt demonstrating increase in work of breathing, stating feels asymptomatic. Requiring O2 at this time, notable for increased requirement from previous visit per family. Respiratory contacted for additional O2 support.
[2023-08-31 19:02] LABS: Lactic Acid 4.9 mmol/L (0.5-2.0)
[2023-08-31 19:05] LABS: Alanine Aminotransferase 54 U/L (0-31); Albumin Level 3.2 g/dL (3.5-5.0); Alkaline Phosphatase 135 U/L (39-117); Anion Gap 18 (12-20); Aspartate Amino Transferase 83 U/L (5-31); Bilirubin Total 0.4 mg/dL (0.0-1.0); Blood Urea Nitrogen 59 mg/dL (9-16); Calcium 10.5 mg/dL (8.4-10.2); Carbon Dioxide 31 mmol/L (22-29); Chloride 92 mmol/L (96-108); Creatinine Clr Calc Pharmacy 63.2; Estimated Glomerular Filt Rate 55; Glucose Random 175 mg/dL (60-115); Lipase 28 U/L (8-78); Magnesium 1.8 mg/dL (1.6-2.6); Potassium 4.6 mmol/L (3.3-5.1); Sodium 136 mmol/L (135-145)
[2023-08-31 19:17] LABS: Troponin-I High Sensitivity 53.7 ng/L (<3.5-17.0)
[2023-08-31] MEDS: iohexoL 350 MG/ML 100 ML INFUS..BTL 85 ML IV (19:51)
[2023-08-31] MEDS: levoFLOXacin/D5W 500 MG/100 ML PIGGYBACK 100 MG IV (19:57)
--- NOTE | 2023-08-31 20:07 | MHC.EDTECH ---
This tech took over care of patient at 1900,hourly rounds and vitals completed ,patient is tachy at 116 and Sats are 88% on 6L,RN at bedside and RT called
[2023-08-31 20:24] LABS: COVID-19 Test Negative (Negative); IDNOW Serial# 08D9AD1C
--- NOTE | 2023-08-31 20:28 | ECG_ITS ---
Test Reason : TACHY Blood Pressure : / mmHG Vent. Rate : 153 BPM Atrial Rate : 000 BPM P-R Int : 000 ms QRS Dur : 096 ms QT Int : 298 ms P-R-T Axes : 000 -01 063 degrees QTc Int : 475 ms Supraventricular tachycardia Intra-ventricular conduction delay Minimal voltage criteria for LVH, may be normal variant ( Chandrakant product ) Possible Anterior infarct , age undetermined ST & T wave abnormality, consider lateral ischemia Abnormal ECG When compared with ECG of 31-AUG-2023 20:30, Heart rate has increased Supraventricular tachycardia is new Referred By: Lilo Shay Electronically Signed By:MARQUISE MCCALLUM MD
--- NOTE | 2023-08-31 20:36 | ECG_ITS ---
Test Reason : HEART RATE ELEVATED Blood Pressure : / mmHG Vent. Rate : 118 BPM Atrial Rate : 118 BPM P-R Int : 156 ms QRS Dur : 098 ms QT Int : 330 ms P-R-T Axes : 066 000 076 degrees QTc Int : 462 ms Sinus tachycardia Minimal voltage criteria for LVH, may be normal variant ( Chandrakant product ) Intra-ventricular conduction delay Abnormal ECG When compared with ECG of 31-AUG-2023 19:10, Fusion complexes are no longer Present Referred By: Lilo Shay Electronically Signed By:MARQUISE MCCALLUM MD
[2023-08-31 20:46] LABS: Reflex Lactate? Lactic Acid Added
[2023-08-31] MEDS: Adenosine 6 MG/2 ML VIAL IVPUSH (20:46)
[2023-08-31] MEDS: Metoprolol Tartrate 5 MG/5 ML VIAL IVPUSH (20:53)
--- NOTE | 2023-08-31 21:01 | PC.NURSE ---
Pt HR with marked increase in rate to 150's. Pt asymptomatic during episode. Medicated for SVT with no conversion. Given Metoprolol with rate decrease. Pt remaining asymptomatic.
--- NOTE | 2023-08-31 21:11 | MHC.EDTECH ---
Patient's heart rate was elevated this tech did an EKG per order, requested a second EKG. Vitals completed and hear rate is elevated. patient's BP was low 106/55 RN Tylor aware,repeated BP 128/60 at this time.Pure Wick was placed per verbal order of provider and patient was repositioned to comfort.
--- NOTE | 2023-08-31 21:38 | PC.NURSE ---
After initial fluid bolus, pt demonstrating mild crackles in lung bases, and O2 saturation as previously charted. Holding off on additional fluid boluses per MD Shay.
--- NOTE | 2023-08-31 21:48 | PM.IMHP ---
History of Present Illness Date of Service: 08/31/23 Chief Complaint: Abdominal Pain This is a 73-year-old female with pertinent history of metastatic breast cancer, essential hypertension, hypothyroidism, COPD not on home oxygen, chronic steroid use, chronic hypoxemic respiratory failure due to metastatic lung disease who presents to the emergency department for evaluation of left-sided back pain. Patient was seen in the ER on 08/23 with concerns for acute UTI. Patient left AMA and was sent cefuroxime. Urine cultures with ESBL E coli. Levaquin was sent but patient did not roller picker Levaquin from the pharmacy. Patient states that she is from [facility] and does not have a [facility] primary care physician in [place]. She denies fever, chills, coughing or wheezing. No leg swelling. Has been having increasing back pain which is worse with movement. No nausea, vomiting, palpitations, changes in bowel habits. In the emergency department, patient was found to be hypoxemic on her for 4 L baseline supplemental oxygen and was also found to be septic. Review of Systems Constitutional: Constitutional: Reports fatigue, Reports lethargy and Reports poor appetite Cardiovascular: Cardiovascular: Reports no additional cardiovascular complaints Respiratory: Respiratory: Reports no additional respiratory complaints Gastrointestinal: Gastrointestinal: Reports no additional gastrointestinal complaints Musculoskeletal: Musculoskeletal: Reports arthralgias Endocrine: Endocrine: Reports fatigue PMFSH Medical History Hypothyroidism Chronic hypoxemic respiratory failure Current chronic use of systemic steroids COPD (chronic obstructive pulmonary disease) Metastatic malignant neoplasm to breast Pertinent family history: No family history of early CAD Social History Patient Tobacco Use Status: Never used Tobacco Advance Directives: No Advance Directives Information Provided: No Nutrition Risks: No Nutritional Risk Meds Allergies Allergy/AdvReac Type Severity Reaction Status Date / Time No Known Allergies Allergy Verified 08/23/23 14:18 Active Medications: Current Medications Acetaminophen (Acetaminophen 325 Mg Tablet) 650 mg PO Q6H PRN PRN Reason: Pain, Mild (Pain Scale 1-3) Enoxaparin Sodium (Enoxaparin Sodium 40 Mg/0.4 Ml Syringe) 40 mg SUBCUT Q24H SILVINA Meropenem 1 gm/ Sodium (Chloride) 100 mls @ 200 mls/hr IV Q8H SILVINA Melatonin (Melatonin 3 Mg Tablet) 6 mg PO BEDTIME PRN PRN Reason: Insomnia Ondansetron HCl (Ondansetron Hcl 4 Mg/2 Ml Vial) 4 mg IVPUSH Q8H PRN PRN Reason: Nausea and Vomiting Sodium Chloride (0.9 % Sodium Chloride Flush 3 Ml Syringe) 3 ml IVFLUSH QSHIFT [facility] Home Medications Medication Instructions Recorded Confirmed Last Taken Type acetaminophen 500 mg tablet 1,000 mg PO Q6H PRN Pain 08/23/23 08/31/23 Unknown History budesonide 200 mcg/actuation 200 mcg inhalation BID 08/23/23 08/31/23 Unknown History breath activated powder inhaler chlorthalidone 25 mg tablet 12.5 mg PO BEDTIME 08/23/23 08/31/23 Unknown History exemestane 25 mg tablet 25 mg PO DAILY@1800 08/23/23 08/31/23 Unknown History ibuprofen 600 mg tablet 600 mg PO TID PRN Pain 08/23/23 08/31/23 Unknown History levothyroxine 150 mcg tablet 150 mcg PO DAILY 08/23/23 08/31/23 Unknown History metoprolol succinate 50 mg 50 mg PO BEDTIME 08/23/23 08/31/23 Unknown History tablet,extended release 24 hr Salbutamol 1 puff inhalation BID 08/31/23 08/31/23 Unknown History prednisolone 5 mg tablet 20 mg PO DAILY@1800 08/31/23 08/31/23 Unknown History Physical Exam Vital Signs and Narrative: Vital Signs: Last Vital Signs Temp 98.1 F 08/31/23 20:42 Pulse 105 H 08/31/23 21:30 Resp 20 08/31/23 21:30 BP 136/63 08/31/23 21:30 Pulse Ox 92 08/31/23 21:30 O2 Del Method Nasal Cannula 08/31/23 21:30 O2 Flow Rate 10 08/31/23 21:30 Oxygen Flow Rate 3 08/31/23 15:59 BMI result Body Mass Index 42.4 Elderly female lying in bed in distress on supplemental oxygen Neck supple Tachycardic with regular rhythm, S1-S2 heard Bilateral crackles without wheezing Abdomen distended, nontender, no guarding, no rigidity Patient is awake, alert and oriented to self, place, time and person ; no focal motor deficit Psych: Normal mood No pedal edema Results Labs 08/31/23 18:38 08/31/23 18:38 Labs: Laboratory Results - last 24 hr 08/31/23 08/31/23 08/31/23 18:38 20:03 21:28 MCV 90.8 MCH 29.3 MCHC 32.2 RDW 14.8 Plt Count 417 H MPV 9.5 Immature Gran % (Auto) 2.4 H Neut % (Auto) 89.8 H Lymph % (Auto) 2.9 L [place] % (Auto) 4.7 Eos % (Auto) 0.0 Baso % (Auto) 0.2 Lymph # (Auto) 0.5 L [place] # (Auto) 0.8 Eos # (Auto) 0.0 Baso # (Auto) 0.0 Abs Immat Gran (auto) 0.43 H Absolute Neuts (auto) 16.2 H Absolute Nucleated RBC 0.000 Nucleated RBC % (auto) 0.0 Anion Gap 18 Estim Creat Clear Calc 63.2 Estimated GFR 55 Random Glucose 175 H Lactic Acid 4.9 H* Lactic Acid F/U @ 2Hr 3.0 H* Calcium 10.5 H Magnesium 1.8 Total Bilirubin 0.4 AST 83 H ALT 54 H Alkaline Phosphatase 135 H Total Protein 6.0 L Albumin 3.2 L Lipase 28 COVID-19 (SUZIE) Negative COVID-19 Clin Com See Note Imaging Radiologist's Impressions: Impressions Chest CTA 08/31/23 20:10 IMPRESSION: No evidence of pulmonary embolism. Innumerable bilateral pulmonary nodules, mediastinal and bilateral hilar lymphadenopathy and loculated bilateral pleural effusions. Findings are suggestive of metastatic disease. Enlarged pulmonary arteries questionable pulmonary artery hypertension. VTE: negative Assessment and Plan (1) Urinary tract infection: Status: Acute (2) Metastatic malignant neoplasm to breast: Status: Acute (3) Current chronic use of systemic steroids: Status: Acute (4) Chronic hypoxemic respiratory failure: Status: Acute Plan This is a 73-year-old female with pertinent history of metastatic breast cancer, essential hypertension, hypothyroidism, COPD not on home oxygen, chronic steroid use, chronic hypoxemic respiratory failure due to metastatic lung disease who presents to the emergency department for evaluation of left-sided back pain. #. Sepsis due to acute UTI: Resuscitated with IV crystalloids. Noted urine culture with ESBL E coli. Initiating IV Levaquin. Blood cultures pending. Lactic acid obtained #. Acute lactic acidosis due to sepsis: Trending down with crystalloid resuscitation #. Acute on chronic hypoxemic respiratory failure in the setting of metastatic lung disease: Imaging with bilateral pleural effusions. Consulting Pulmonary, appreciate assistance. Imaging concerning for pulmonary hypertension, obtaining echo #. Metastatic breast cancer: Family states that the cancer is progressed. Initially only involved the lungs but on presentation, imaging with metastasis to liver, spleen and metastatic bone disease. Consulting Oncology, appreciate assistance. Patient is on exemestane #. Low back pain due to metastatic bone: Initiating IV morphine p.r.n. #. Elevated troponin, likely type 2 in the setting of increased amount: Trending troponin #. Imaging with gallbladder stone versus gallbladder mass: Ordered gallbladder ultrasound, pending #. SVT during admission. Was given IV adenosine and IV Lopressor in the ER with control of heart rate. Continue to monitor on telemetry #. Essential hypertension: Hold antihypertensives in the setting of sepsis #. Hypothyroidism: On Synthroid #. COPD: No exacerbation during admission. Continue home inhaler #. Chronic steroid use: On prednisone 20 mg daily DVT prophylaxis: Lovenox DNR/DNI. Discussed with patient at bedside Admit as inpatient and will require two night minimum hospital stay for IV antibiotics, supplemental oxygen, monitoring of hemodynamics (as above), which is not possible in a lesser acute setting. Specialist consult pending Quality Stroke Does the patient have a stroke diagnosis?: No VTE Prior VTE?: No VTE Risk Level:: Medical - moderate - high VTE Device Contraindication: Treatment Not Indicated VTE Drug Contraindication: N/A - Med Ordered
--- NOTE | 2023-08-31 22:19 | PHA.MEDREC ---
Pharmacy Consult ? Medication Reconciliation Pharmacy has completed the medication reconciliation. Patient's family had medications from home. Medications [place] from [place]. Patient would prefer to use salbutamol instead of albuterol. Emani Chung, MannyD
--- NOTE | 2023-08-31 22:32 | MHC.EDTECH ---
Hourly rounds and vitals completed. Patient placed on bedpan to move bowels,patient was unable to at this time. Call alejandre within reach and family at bedside
[2023-08-31] MEDS: Morphine Sulfate 4 MG/ML CARTRIDGE IVPUSH (23:21)
[2023-08-31] MEDS: Enoxaparin Sodium 40 MG/0.4 ML SYRINGE SUBCUT (23:21)
[2023-08-31 23:31] LABS: Reflex Lactate? 2 Y
[2023-08-31 23:51] LABS: B Type Natriuretic Peptide 35 pg/mL (<100)
[2023-09-01 00:15] VITALS: BP 103/64; PULSE 109; RESP 26; TEMP 36.4; O2SAT 88
--- NOTE | 2023-09-01 00:16 | MHC.EDTECH ---
Patient placed on commode with 2 assist,patient urinated an moderate amount. Patient placed in hospital bed for comfort,and vitals were taken and BP is 103/64 and O2 Sats are 88% VANITA Snider at bedside and is aware.
[2023-09-01 00:33] LABS: ~Lactic Acid-LAB USE ONLY 5.1 mmol/L (0.5-2.0)
--- NOTE | 2023-09-01 00:45 | PC.NURSE ---
Critical lactic 5.1 notified VANITA Snider.
[2023-09-01] MEDS: 0.9 % Sodium Chloride Flush 3 ML SYRINGE IVFLUSH (01:04)
[2023-09-01] MEDS: Magnesium Hydrox/Alum Hydrox 30 ML ORAL.SUSP PO (01:09)
--- NOTE | 2023-09-01 01:33 | MHC.EDTECH ---
2 assist to commode patient urinated 300MLS, urine collected and sent to lab .Patient got very SOB and pale while attempting to place patient back to bed,Sats dropped to 82%,RN Tylor aware and patient's Sats are back up to 91%.
[2023-09-01 01:37] VITALS: BP 117/63; PULSE 103; RESP 24; O2SAT 91
[2023-09-01 01:48] LABS: Appearance Urine Clear; Color Urine Yellow; Glucose Urine UA Negative (Negative); Leukocyte Esterase Urine Small (1+) (Negative); Nitrite Urine Negative (Negative); PH 5.5 (5.0-9.0); Specific Gravity - Urine >= 1.030 (1.005-1.025); UMIC TRIGGER UACC YES; Urine Blood Negative (Negative); Urine Ketones Negative (Negative); Urine Protein Trace mg/dL (Neg-Trace)
[2023-09-01 02:03] LABS: Bacteria Urine Trace (None Seen); RBC Urine 0-2 /HPF (0-2); UACC Culture Trigger YES
[2023-09-01 02:29] VITALS: BP 105/76; PULSE 111; RESP 22; O2SAT 88
--- NOTE | 2023-09-01 02:30 | MHC.EDTECH ---
Patient called and stated she was incot. of a bowel movement,upon rolling patient there was an Extra large amount of black liquid stool.This tech got VANITA Snider to bedside. Patient was cleaned and an Occult Stool was obtained and sent to lab. Patient's BP is 105/76 and Sats are 88 RN aware.
[2023-09-01 02:40] LABS: OBS Int Ctl Valid YES; OBS1 POSITIVE (NEGATIVE)
--- NOTE | 2023-09-01 02:44 | PM.EVENT ---
Event Note Date of Service: 09/01/23 Event Note: Was notified by nurse that patient had an episode of dark stool. Stool occult blood positive. Ordered IV Protonix and will consult GI. Will keep patient NPO Time Spent With Patient Time: Total time managing care of this patient today ____ minutes.
--- NOTE | 2023-09-01 02:52 | PC.NURSE ---
Pt began with dark red, liquid stool, with some small soft formed stool present. MD Sofia notified for further orders.
--- NOTE | 2023-09-01 03:01 | MHC.EDTECH ---
Patient was incont.of a small amount of Liquid black stool,patient cleaned and linen was changed, RN at bedside
[2023-09-01] MEDS: Pantoprazole Sodium 40 MG/10 ML VIAL 80 MG IVPUSH (03:04)
--- NOTE | 2023-09-01 03:09 | PC.NURSE ---
Flexiseal installed for patient skin integrity.
[2023-09-01] MEDS: Lactated Ringers 1,000 ML 999 ML IV (03:11)
[2023-09-01 04:04] VITALS: BP 99/47; PULSE 105; RESP 24; TEMP 36.6; O2SAT 88
--- NOTE | 2023-09-01 04:05 | MHC.EDTECH ---
Hourly rounds and vitals completed, Patient's BP is low 99/47 RN Tylor is aware. Patient was repositioned to comfort.Flexi Seal tubing completely filled with dark red liquid stool.Belonging list completed and copy placed in chart
--- NOTE | 2023-09-01 05:39 | PC.NURSE ---
MD Sofia made aware of pt SBP and O2 saturation, no additional orders.
[2023-09-01 05:41] VITALS: BP 89/43; PULSE 101; RESP 26; TEMP 36.4; O2SAT 88
--- NOTE | 2023-09-01 05:44 | MHC.EDTECH ---
Addendum entered by Lyudmila Spann 09/01/23 06:24: At this time patient put out another 100MLS,with a total of 300MLS since rectal tube placement. Original Note: Hourly rounds and vitals completed,BP is low 89/43 RN Tylor aware. Patient put out 200MLS in rectal tube,dark red in color. Patient repositioned to comfort.
[2023-09-01 05:53] LABS: Hematocrit 32.8 % (37.0-47.0); Hemoglobin 10.1 g/dl (12.0-16.0); Mean Corpuscular HGB Conc 30.8 g/dl (31.0-35.0); Mean Corpuscular Hemoglobin 29.7 pg (27.0-33.0); Mean Corpuscular Volume 96.5 fL (80.0-98.0); Mean Platelet Volume 10.5 fL (9.4-12.3); NRBC Pct Auto 0.1 /100WBC (0.0-0.2); Platelet Count 325 X10*3/uL (160-400); White Blood Count 27.8 X10*3/uL (4.8-10.8)
--- NOTE | 2023-09-01 06:04 | W.MHC.ACPN ---
Advanced Care Planning Note Advanced Care Planning Note Discussed with: family member(s) Time spent (in minutes): 28 Narrative: Extensive discussion with daughterRochelle about goals of care. Discussed with daughter about the underlying extensive metastatic cancer which is now complicated by worsening hypoxemia, severe sepsis, acute kidney injury and GI bleed. The daughter understands and is leaning towards focusing on quality of life. The daughter wants to hold off on comfort care measures till she comes to visit her mother in person. Will continue goals of care discussion when the daughter visits the hospital. Problems Discussed (1) Urinary tract infection: (2) Metastatic malignant neoplasm to breast: (3) Current chronic use of systemic steroids: (4) Chronic hypoxemic respiratory failure:
[2023-09-01 06:07] LABS: Anion Gap 20 (12-20); Blood Urea Nitrogen 75 mg/dL (9-16); Calcium 9.7 mg/dL (8.4-10.2); Carbon Dioxide 28 mmol/L (22-29); Chloride 95 mmol/L (96-108); Creatinine Clr Calc Pharmacy 44.8; Estimated Glomerular Filt Rate 37; Glucose Random 119 mg/dL (60-115); Potassium 5.3 mmol/L (3.3-5.1); Sodium 138 mmol/L (135-145)
[2023-09-01] MEDS: Lactated Ringers 500 ML 999 ML IV (06:11)
[2023-09-01 06:15] LABS: Band Neutrophils Percent 15 % (3-5)
[2023-09-01 06:16] LABS: Lymphocytes Absolute Manual 0.8 X10*3/uL (1.2-4.9); Lymphocytes Percent Manual 3 % (20-40); Monocytes Absolute Manual 1.1 X10*3/uL (0.1-1.2); Monocytes Percent Manual 4 % (2-11); Neutrophils Absolute Manual 25.9 X10*3/uL (2.0-8.3); Neutrophils Percent Manual 78 % (45-73)
[2023-09-01 06:17] LABS: Burr Cells 1+ (0-2) /OIF; Ovalocytes 1+ (5-14) /OIF; Platelet Estimate NORMAL (NORMAL); RBC Morphology NOTED; Troponin-I High Sensitivity 50.3 ng/L (<3.5-17.0)
[2023-09-01 06:18] LABS: Platelet Morphology Comment NORMAL
[2023-09-01] MEDS: Morphine Sulfate 4 MG/ML CARTRIDGE IVPUSH (06:25)
--- NOTE | 2023-09-01 06:31 | MHC.EDTECH ---
Patient repositioned to comfort
--- NOTE | 2023-09-01 07:00 | CA_ITS ---
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 The visually estimated ejection fraction is between 65-70%. - No obvious valvular pathology seen on this study. - Mild pulmonary hypertension is present. Findings Left Ventricle Normal left ventricular cavity size. There is mildly increased left ventricular wall thickness. The left ventricular systolic function is normal. The visually estimated ejection fraction is between 65-70%. Regional wall motion abnormalities can not be excluded due to suboptimal endocardial definition. Evidence suggests grade I (mild) diastolic dysfunction. Right Ventricle Normal right ventricular cavity size and systolic function. Atria Both atria are normal in size. Aortic Valve The aortic valve was not well visualized. There is no aortic valve stenosis. There is no aortic valve regurgitation. Mitral Valve The mitral valve appears normal. There is no mitral valve regurgitation. There is no mitral valve stenosis. Pulmonic Valve The pulmonic valve was not well visualized. Tricuspid Valve There is mild tricuspid valve regurgitation. Mild pulmonary hypertension is present. Great Vessels The asc aorta is normal in size. Venous The inferior vena cava was not well visualized. The inferior vena cava is normal in size. Pericardium/Pleural There is no evidence of pericardial effusion. Prior Study Comparison No prior study available for comparison. Recommendations, Care & Conclusions No obvious valvular pathology seen on this study. Measurements 2D Linear Measurements IVSd: 1.23 0.6-0.9/0.6-1.0 cm LVIDd: 3.10 3.9-5.3/4.2-5.9 cm LVIDd Index: 1.42 2.4-3.2/2.2-3.1 cm/m2 LVIDs: 2.09 2.0-3.6 cm LVPWd: 1.26 0.7-1.1 cm Ao Root: 3.10 2.1-3.5 cm LA Diam: 3.10 2.7-3.8/3.0-4.0 cm LAIDs Index: 1.42 1.5-2.3 cm/m2 LV Mass: 150.68 67-162/88-224 g LV Mass Index: 69.12 43-95/49-115 g/m2 LVOT Diam: 2.10 3.0+(-)1.3 cm 2D Volumes LA Vol: 11.10 Mitral Valve MV Pk E: 0.58 MV PK A: 1.08 MV Decel Time: 92.00 E/A: 0.50 E'Lateral: 4.13 E'Medial: 4.03 E/E' Med: 14.40 E/E' Lat: 14.10 PHT: 27.00 MVA PHT: 8.15 Decel [place]: 6.34 Aortic Valve AoV Pk Kd: 1.74 AoV Mn Kd: 1.25 AoV VTI: 0.29 AoV Pk Grad: 12.00 Aov Mn Grad: 7.00 ALYCE Cont.VTI: 2.67 LVOT LVOT Pk Kd: 1.56 LVOT Mn Kd: 1.04 LVOT VTI: 0.22 LVOT Pk Grad: 10.00 LVOT Mn Grad: 5.00 LVOT Diam: 2.10 LVOT Area: 3.46 Diastolic Function MV Pk E: 0.58 MV Pk A: 1.08 E/A: 0.50 E'Medial: 4.03 E/E' Med: 14.40 E' Laterial: 4.13 E/E' Lat: 14.10 Right Ventricle TAPSE (mm): 24.00 TVS' Kd: 17.00 Tricuspid Valve TR Pk Kd: 3.43 TR Pk Grad: 47.00 RA Press: 3.00 RVSP: 50.00 Great Vessels Aorta Ao Root-2D: 3.10 2.0-3.7 cm Ao Asc: 3.60 2.1-3.4 cm Updated in Other Vendor System with Status of Final Papa Lenz MD electronically signed on 09/01/2023 4:12:06 PM with status of Final
[2023-09-01] MEDS: Levothyroxine Sodium 150 MCG TABLET PO (08:11)
[2023-09-01] MEDS: Hydrocortisone Sod Succ/PF 100 MG VIAL 50 MG IVPUSH (09:06)
--- NOTE | 2023-09-01 09:15 | P.CONPL_ITS ---
History of Present Illness History of Present Illness Consult date: 09/01/23 Reason for consult: dyspnea, pneumonia, pleural effusion and lung mass Chief complaint: Abdominal Pain Narrative: Pulmonary consult : I HAVE SEEN THIS 73 YEARS OLD FEMALE IN THE EMERGENCY ROOM SUITE, WHO HAS COME TO THE EMERGENCY ROOM BECAUSE OF LEFT-SIDED BACK PAIN, SOME SHORTNESS OF BREATH AND ONLY MINIMAL COUGH. HER O2 SAT BEING LOW SHE HAS BEEN STARTED ON OXYGEN SUPPLEMENT. WHEN I SEE THIS PATIENT SHE IS RELATIVELY SLEEPY, DOES CONVERSE BUT JUST BY SAYING YES OR NO. MOST OF THE INFORMATION I HAVE READ OBTAINED FROM THE MEDICAL RECORDS. EVIDENT FROM HER RECENT THE NOTES IN THE EMERGENCY ROOM AND BY THE HOSPITALIST, SHE IS 73 YEARS OLD FROM [facility] , VISITING HERE HER DAUGHTER. 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 ANYWAY SHE COMES TODAY BECAUSE OF LEFT-SIDED BACK PAIN AND SOME SHORTNESS OF BREATH. PATIENT HAS NOT DESCRIBED THE PAIN PLEURITIC. MOST OF THE ABNORMAL FINDINGS ARE BASED ON THE CHEST X-RAY AND CT SCAN OF THE CHEST, SHOWING EXTENSIVE METASTATIC DISEASE AND LOCULATED PLEURAL EFFUSIONS. PATIENT DOES NOT HAVE FEVER OR CHILLS AT THIS TIME. THIS PATIENT HAS HISTORY OF METASTATIC BREAST CANCER WITH EVIDENCE OF METS IN BOTH LUNGS, LIVER, AND BONES. APPARENTLY PATIENT DOES NOT HAVE ANY UNDERLYING LUNG DISEASE, DENIES SMOKING. SHE IS BEING TREATED WITH OXYGEN SUPPLEMENTS, APPEARS TO BE FAIRLY COMFORTABLE. Review of Systems 2 Review of Systems: Yes all other systems are reviewed and are negative PMFSH Past Medical History Medical History (Updated 09/01/23 @ 09:29 by Anderson Dior MD) Lung neoplasm Respiratory failure with hypoxia Pleural effusion Metastatic adenocarcinoma to lung Hypothyroidism Chronic hypoxemic respiratory failure Current chronic use of systemic steroids COPD (chronic obstructive pulmonary disease) Metastatic malignant neoplasm to breast Social History Social History Patient Tobacco Use Status: Never used Tobacco Advance Directives: No Advance Directives Information Provided: No Nutrition Risks: No Nutritional Risk Meds Allergies Allergy/AdvReac Type Severity Reaction Status Date / Time No Known Allergies Allergy Verified 08/23/23 14:18 Active Medications: Current Medications Acetaminophen (Acetaminophen 325 Mg Tablet) 650 mg PO Q6H PRN PRN Reason: Pain, Mild (Pain Scale 1-3) Acetaminophen (Acetaminophen 325 Mg Tablet) 975 mg PO Q6H PRN PRN Reason: Pain Al Hydroxide/Mg Hydroxide (Magnesium Hydrox/Alum Hydrox 30 Ml Oral.Susp) 30 ml PO Q6H PRN PRN Reason: Heartburn Last Admin: 09/01/23 01:09 Dose: 30 ml Hydrocortisone Sodium Succinate (Hydrocortisone Sod Succ/Pf 100 Mg Vial) 50 mg IVPUSH Q8H [facility] Last Admin: 09/01/23 09:06 Dose: 50 mg Levofloxacin (Levaquin) 750 mg in 150 mls @ 100 mls/hr IV Q24H [facility] Lactated Ringer's (Lr) 1,000 mls @ 125 mls/hr IVCONT .Q8H [facility] Levothyroxine Sodium (Levothyroxine Sodium 150 Mcg Tablet) 150 mcg PO DAILY@0600 [facility] Last Admin: 09/01/23 08:11 Dose: 150 mcg Melatonin (Melatonin 3 Mg Tablet) 6 mg PO BEDTIME PRN PRN Reason: Insomnia Morphine Sulfate (Morphine Sulfate 4 Mg/Ml Cartridge) 4 mg IVPUSH Q4H PRN; Protocol PRN Reason: Pain, Severe (Pain Scale 7-10) Last Admin: 09/01/23 06:25 Dose: 4 mg Non-Formulary Medication (Budesonide) 200 mcg INHALE BID [facility] Pt Own Med ( Exemestane 25 Mg Tablet) 25 mg PO DAILY@1800 [facility] Last Admin: 08/31/23 23:22 Dose: 25 mg Non-Formulary Medication (Prednisolone) 20 mg PO DAILY@1800 [facility] Non-Formulary Medication (Salbutamol) 1 puff INHALE BID [facility] Ondansetron HCl (Ondansetron Hcl 4 Mg/2 Ml Vial) 4 mg IVPUSH Q8H PRN PRN Reason: Nausea and Vomiting Last Admin: 08/31/23 23:21 Dose: 4 mg Sodium Chloride (0.9 % Sodium Chloride Flush 3 Ml Syringe) 3 ml IVFLUSH QSHIFT [facility] Last Admin: 09/01/23 07:47 Dose: Not Given Home Medications Medication Instructions Recorded Confirmed Last Taken Type acetaminophen 500 mg tablet 1,000 mg PO Q6H PRN Pain 08/23/23 08/31/23 Unknown History budesonide 200 mcg/actuation 200 mcg inhalation BID 08/23/23 08/31/23 Unknown History breath activated powder inhaler chlorthalidone 25 mg tablet 12.5 mg PO BEDTIME 08/23/23 08/31/23 Unknown History exemestane 25 mg tablet 25 mg PO DAILY@1800 08/23/23 08/31/23 Unknown History ibuprofen 600 mg tablet 600 mg PO TID PRN Pain 08/23/23 08/31/23 Unknown History levothyroxine 150 mcg tablet 150 mcg PO DAILY 08/23/23 08/31/23 Unknown History metoprolol succinate 50 mg 50 mg PO BEDTIME 08/23/23 08/31/23 Unknown History tablet,extended release 24 hr Salbutamol 1 puff inhalation BID 08/31/23 08/31/23 Unknown History prednisolone 5 mg tablet 20 mg PO DAILY@1800 08/31/23 08/31/23 Unknown History Physical Exam 2 Vital Signs: Vital Signs: Last Vital Signs Temp 97.5 F 09/01/23 05:41 Pulse 101 H 09/01/23 05:41 Resp 26 H 09/01/23 05:41 BP 89/43 L 09/01/23 05:41 Pulse Ox 88 L 09/01/23 05:41 O2 Del Method Nasal Cannula 09/01/23 05:41 O2 Flow Rate 10 09/01/23 05:41 Oxygen Flow Rate 3 08/31/23 15:59 BMI result Body Mass Index 42.4 THIS WAS A LIMITED EXAMINATION. PALPATION OF THE CHEST DOES NOT SHE SHOW ANY LOCALIZED TENDERNESS, PERCUSSION NOTE NOT PERCEPTIBLE BECAUSE OF THICK. CHEST WALL BREATH SOUNDS ARE DISTANT, AND MUCH DECREASED OVER THE BASILAR AREAS. I DID NOT HEAR ANY CREPITATIONS OR WHEEZES. EXTREMITIES ARE BULKY BUT NO PITTING EDEMA AND NO LOCALIZED TENDERNESS. Results Laboratory Findings 09/01/23 05:10 09/01/23 05:10 Abnormal lab findings: Abnormal Labs 08/31/23 08/31/23 09/01/23 18:38 21:28 00:09 WBC 18.0 H RBC 3.69 L Hgb 10.8 L Hct 33.5 L MCHC Plt Count 417 H Immature Gran % (Auto) 2.4 H Neut % (Auto) 89.8 H Lymph % (Auto) 2.9 L Lymph # (Auto) 0.5 L Abs Immat Gran (auto) 0.43 H Absolute Neuts (auto) 16.2 H Absolute Nucleated RBC Neutrophils % (Manual) Band Neutrophils % Lymphocytes % (Manual) Abs Neuts (Manual) Lymphocytes # (Manual) Potassium Chloride 92 L Carbon Dioxide 31 H BUN 59 H Creatinine Random Glucose 175 H Lactic Acid 4.9 H* Lactic Acid F/U @ 2Hr 3.0 H* Lactic Acid F/U @ 4Hr 5.1 H* Calcium 10.5 H AST 83 H ALT 54 H Alkaline Phosphatase 135 H Troponin I High Sens 53.7 H* Total Protein 6.0 L Albumin 3.2 L Ur Specific [place] Ur Leukocyte Esterase 09/01/23 09/01/23 01:41 05:10 WBC 27.8 H RBC 3.40 L Hgb 10.1 L Hct 32.8 L MCHC 30.8 L Plt Count Immature Gran % (Auto) Neut % (Auto) Lymph % (Auto) Lymph # (Auto) Abs Immat Gran (auto) Absolute Neuts (auto) Absolute Nucleated RBC 0.020 H Neutrophils % (Manual) 78 H Band Neutrophils % 15 H Lymphocytes % (Manual) 3 L Abs Neuts (Manual) 25.9 H Lymphocytes # (Manual) 0.8 L Potassium 5.3 H Chloride 95 L Carbon Dioxide BUN 75 H Creatinine 1.41 H Random Glucose 119 H Lactic Acid Lactic Acid F/U @ 2Hr Lactic Acid F/U @ 4Hr Calcium AST ALT Alkaline Phosphatase Troponin I High Sens 50.3 H* Total Protein Albumin Ur Specific [place] >= 1.030 H Ur Leukocyte Esterase Small (1+) H LEUKOCYTOSIS M ACUTE INFECTION. AY BE SECONDARY TO GENERALIZED METASTATIC DISEASE ARE DUE TO Diagnostic Findings Chest x-ray: report reviewed and image reviewed CT scan - chest: report reviewed and image reviewed Assessment and Plan (1) Metastatic malignant neoplasm to breast: Status: Acute (2) Metastatic adenocarcinoma to lung: Status: Acute (3) Pleural effusion: Status: Acute (4) Respiratory failure with hypoxia: Status: Acute Plan THIS 73 YEARS OLD FEMALE WHO IS GROSSLY OBESE, HAS EVIDENCE OF BILATERAL MULTIPLE METASTATIC LESIONS IN BOTH LUNGS, ALSO HAS SMALL TO MODERATE-SIZED PLEURAL EFFUSIONS ON BOTH SIDES, THEY SEEM TO BE LOCULATED ESPECIALLY ON THE LEFT SIDE.THE PLEURAL EFFUSIONS ARE MOST LIKELY MALIGNANT DUE TO METASTATIC DISEASE, AND NOT DUE TO INFECTIOUS PROCESS. I THINK IT WILL BE DIFFICULT TO DRAIN THE FLUID WITH THORACENTESES ON BOTH SIDES, BECAUSE THERE ARE MULTIPLE LOCULATED AREAS, PATIENT HAS HYPOXEMIA WHICH CAN BE TREATED WITH OXYGEN SUPPLEMENTATION. I THINK TREATMENT SHOULD BE DIRECTED TOWARDS PALLIATIVE/ COMFORT CARE. THIS WOULD NEED FURTHER DISCUSSION WITH PATIENT'S DAUGHTER. Procedures Date of Service Date of Service: 09/01/23
--- NOTE | 2023-09-01 09:42 | PC.NURSE ---
assumed care of pt at 0700.pt lethargic, arouses to verbal stimuli. sleeping mostly. pt on 12L via NC with humidified air sating between 87-90%. small nosebleed this AM at change of shift. MD aware. pt medicated per dec. rectal tube in place. LR running at 125/hr per dec. pt denies pain and offers no complaints drake. call alejandre within pt reach. rr even/unlabored. pt within eye sight of this RN. plan of care ongoing.
--- NOTE | 2023-09-01 10:28 | MHC.CM.PN ---
PATIENT NOT RESPONDING TO CASE MANAGEMENT ATTEMPTS TO ASSESS. ASSESSMENT CONDUCTED WITH GRAND DAUGHTER, LUIZA, WHO IS CURRENTLY BEDSIDE. ADDRESS VERIFIED. NO PCP SECURED. PATIENT HAS A WALKER AT HOME WHICH IS REPORTEDLY INSUFFICIENT FOR PATIENT NEEDS AT THIS TIME. SHE RELIES ON HOME O2, WHICH PATIENT CURRENTLY DOES NOT HAVE. LUIZA STATES THAT PATIENT'S DAUGHTER, NAVIN, IS ON HER WAY IN. PROVIDER MADE AWARE.
--- NOTE | 2023-09-01 13:01 | PC.NURSE ---
family spoke with Dr. Ribeiro, changed pt plan of care to [facility]. pt was sating 82% on 13L humidified O2 via NC. Dr. Ribeiro aware. pt family at bedside. pt's HR dropped into the 20s, family panicked and yelled for a doctor. family was informed that pt was passing. monitor turned off in pt's room. asystole on nursing secretary monitor. Dr. Ribeiro notified and aware. cancelled pt bed on floor with Gunnar.
--- NOTE | 2023-09-01 13:10 | P.DN_ITS ---
Discharge Sum: Prov Provider Primary care physician: Unknown Physician Admitting clinician: Zenaida Sofia Pronouncing clinician: Rosio Ribeiro Discharge Sum: Diag Contributing Factors (1) Metastatic malignant neoplasm to breast: (2) Metastatic adenocarcinoma to lung: (3) Pleural effusion: (4) Respiratory failure with hypoxia: Discharge Sum: Summary Date and Time Date of admission: 08/31/23 21:44 Date of : 09/01/23 Time of : 13:04 Summary Details: from admission H+P by Eulogio Sofia MD, 08/31/23: This is a 73-year-old female with pertinent history of metastatic breast cancer, essential hypertension, hypothyroidism, COPD not on home oxygen, chronic steroid use, chronic hypoxemic respiratory failure due to metastatic lung disease who presents to the emergency department for evaluation of left-sided back pain. Patient was seen in the ER on 08/23 with concerns for acute UTI. Patient left AMA and was sent cefuroxime. Urine cultures with ESBL E coli. Levaquin was sent but patient did not potato picker Levaquin from the pharmacy. Patient states that she is from [facility] and does not have a [facility] primary care physician in [place]. She denies fever, chills, coughing or wheezing. No leg swelling. Has been having increasing back pain which is worse with movement. No nausea, vomiting, palpitations, changes in bowel habits. In the emergency department, patient was found to be hypoxemic on her for 4 L baseline supplemental oxygen and was also found to be septic. She was admitted to the hospitalist service for severe sepsis due to UTI. Unfortunately, her clinical condition deteriorated rapidly despite crystalloid resuscitation and IV antibiotics. She developed acute kidney injury and acute respiratory failure. She also had an episode of SVT. She became hypotensive. Dr Sofia and I discussed goals of care with her daughter, Rochelle. In light of incurable and worsening metastatic breast cancer and multiorgan failure, she was transitioned to comfort measures only status. She without distress on 13:04 on 09/01/23 with her family at her side. Additional Data Confirmation of as documented by pronouncing clinician: no pulse, no respirations, no heart sounds, pupils fixed and dilated and other (no corneal reflex) Family: at bedside Attending physician: Rosio Ribeiro MD
--- NOTE | 2023-09-01 15:39 | PC.NURSE ---
MICAELA called, this RN spoke with Darryn. All donations were declined. reference number: [id number]
--- NOTE | 2023-09-01 18:41 | PC.NURSE ---
pt family still in room with body. the pt passed at 13:04. [address]. Ribeiro told them after the pt passed that they could stay with the body overnight and into tomorrow. family stating more family to arrive in the morning to say their goodbyes. Dr. Ribeiro, charge account identification clerk, and supervisor title aware of situation. pt family updated by charge account identification clerk and supervisor title, stating they could stay with pt body until 20:30.
--- NOTE | 2023-09-01 20:53 | PC.NURSE ---
Family leaving at this time, daughter to call with home information. Plan [place] post mortem care [place] [facility] [place]
--- NOTE | 2023-09-01 21:28 | PC.NURSE ---
Dentures not able to be obtained at this time. Dentures kept in mouth at this time.
== END 2023-09-01 22:00 | disposition expired | DRG 720 ==
LOC: HO.ED 21:56 → HO.EDOVER 22:28
PROVIDERS: Physician Assistant; Admitting Provider Student in an Organized Health Care Education/Training Program; Emergency Provider Emergency Medicine Emergency Medical Services; Visit Provider Family Medicine
DX: A41.9 Sepsis, unspecified organism (principal); J96.21 Acute and chronic respiratory failure with hypoxia; C78.02 Secondary malignant neoplasm of left lung; C78.01 Secondary malignant neoplasm of right lung; C78.89 Secondary malignant neoplasm of other digestive organs; C78.7 Secondary malignant neoplasm of liver and intrahepatic bile duct; I47.10 Supraventricular tachycardia, unspecified; I95.9 Hypotension, unspecified; J91.0 Malignant pleural effusion; C79.51 Secondary malignant neoplasm of bone; E03.9 Hypothyroidism, unspecified; N17.9 Acute kidney failure, unspecified; N39.0 Urinary tract infection, site not specified; R65.20 Severe sepsis without septic shock; I27.20 Pulmonary hypertension, unspecified; Z66 Do not resuscitate; I10 Essential (primary) hypertension; G89.3 Neoplasm related pain (acute) (chronic); C50.919 Malignant neoplasm of unspecified site of unspecified female breast; Z20.822 Contact with and (suspected) exposure to COVID-19; Z79.890 Hormone replacement therapy; Z79.52 Long term (current) use of systemic steroids; Z79.899 Other long term (current) drug therapy
CPT/HCPCS: 36415; 71045; 71275; 74177; 76705; 80048; 80053; 81001; 82272; 83605; 83690; 83735; 83880; 84484; 85007; 85025; 85027; 87040; 87086; 87635; 92950; 93005; 93306; 99285; C9113; J0153; J1170; J1650; J1720; J1956; J2270; J2405; J7120; Q9967

== ENCOUNTER 2023-08-31 21:44 | Outpatient (BNV) | payer SELFPAY | END 2023-09-01 07:00 | PROVIDERS: Admitting Provider Student in an Organized Health Care Education/Training Program; Emergency Provider Emergency Medicine Emergency Medical Services; Visit Provider Internal Medicine | DX: I51.9 Heart disease, unspecified (principal) | CPT/HCPCS: 93306 ==

== ENCOUNTER → 2023-08-31 21:44 | Outpatient (BNV) | payer SELFPAY | PROVIDERS: Admitting Provider Student in an Organized Health Care Education/Training Program; Emergency Provider Emergency Medicine Emergency Medical Services; Visit Provider Student in an Organized Health Care Education/Training Program | DX: J96.21 Acute and chronic respiratory failure with hypoxia (principal); C79.81 Secondary malignant neoplasm of breast; C78.00 Secondary malignant neoplasm of unspecified lung; N39.0 Urinary tract infection, site not specified; Z79.52 Long term (current) use of systemic steroids; J90 Pleural effusion, not elsewhere classified; Z51.5 Encounter for palliative care; Z71.89 Other specified counseling | CPT/HCPCS: 99223; 99239; 99497 ==

== ENCOUNTER → 2023-08-31 21:44 | Outpatient (BNV) | payer SELFPAY | PROVIDERS: Admitting Provider Student in an Organized Health Care Education/Training Program; Emergency Provider Emergency Medicine Emergency Medical Services; Visit Provider Internal Medicine | DX: C79.81 Secondary malignant neoplasm of breast (principal); C78.00 Secondary malignant neoplasm of unspecified lung; J90 Pleural effusion, not elsewhere classified; J96.91 Respiratory failure, unspecified with hypoxia | CPT/HCPCS: 99222 ==